=== PATIENT | female | born 1980 | race Caucasian/White ===

== ENCOUNTER 2018-08-22 22:48 | Emergency (ER) | payer OTHER ==
[~2018-08-22 22:48] MED LIST: ALPRAZOLAM1 M2 PO; BENADRYL 50 MG50 MG PO; BISAC-EVAC10 M1 PR; DOCUSATE SODIU100 M3 PO; IBUPROFEN800 M1 PO; KEFLEX500 MG PO; METHADONE HCL10 M1 PO; MOTRIN800 MG PO; NICOTINE PATCH1 EAC3 TOP; PEPCID40 MG PO; PERCOCET 325 MG1 TA2 PO; PERCOCET 5-3251 EACH PO; PREDNISONE 10MG10 M1 PO; TRAMADOL50 MG PO
[2018-08-22 23:04] VITALS: BP 124/83
== END 2018-08-23 02:07 | disposition admitted as inpatient to this hospital (09) ==
LOC: ERH 22:48
DX: L23.7 Allergic contact dermatitis due to plants, except food (principal)